=== PATIENT | female | born 2000 | race Caucasian/White ===

== ENCOUNTER → 2022-12-18 | Outpatient (CLI) | payer SELFPAY, OTHER ==
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
== END | disposition home or self-care (01) ==
LOC: CVS 08:24
PROVIDERS: PCP Nurse Practitioner Family; Referring Provider Nurse Practitioner Family; Visit Provider Nurse Practitioner Family
DX: I87.1 Compression of vein (principal)
CPT/HCPCS: 93975

== ENCOUNTER → 2023-03-27 | Outpatient (CLI) | payer OTHER, SELFPAY | END | disposition home or self-care (01) | PROVIDERS: PCP Nurse Practitioner Family; Referring Provider Nurse Practitioner Family; Visit Provider Nurse Practitioner Family | DX: I77.4 Celiac artery compression syndrome (principal) | CPT/HCPCS: 93975 ==